=== PATIENT | female | born 1995 | race Caucasian/White ===

== ENCOUNTER 2020-05-29 19:18 | Emergency (ER) | payer MEDICAID ==
[~2020-05-29] VITALS: Ht 160 cm; Wt 63.0 kg
[2020-05-29 20:37] VITALS: BP 106/64
[2020-05-29] MEDS: IBUPROFEN 600MG TABLET PO ONE (20:37)
== END 2020-05-29 22:04 | disposition home or self-care (01) ==
LOC: ER 19:18
DX: M54.5 Low back pain (principal); R51.9 Headache, unspecified
CPT/HCPCS: 99281